=== PATIENT | male | born 1960 | race Caucasian/White ===

== ENCOUNTER 2018-02-11 18:48 | Observation (INO) | payer BC ==
[~2018-02-11] VITALS: Ht 177.8 cm; Wt 74.8 kg
[2018-02-11 22:08] LABS: BASOPHILS ABSOLUTE AUTO 0.08 K/mm3 (0.00-0.23); BASOPHILS PERCENT AUTO 1 % (0-2); EOSINOPHILS ABSOLUTE AUTO 0.09 K/mm3 (0.00-0.68); EOSINOPHILS PERCENT AUTO 1 % (0-6); Hematocrit 47.7 % (37.0-53.0); Hemoglobin 16.5 g/dL (13.5-17.5); IMMATURE GRAN ABSOLUTE AUTO 0.05 K/mm3 (0.00-0.10); IMMATURE GRAN PERCENT AUTO 0 % (0-1); LYMPHOCYTES PERCENT AUTO 10 % (21-46); MONOCYTES ABSOLUTE AUTO 1.14 K/mm3 (0.16-1.47); MONOCYTES PERCENT AUTO 8 % (4-13); Mean Corpuscular HGB 32.7 pg (26.0-34.0); Mean Corpuscular HGB Conc 34.6 g/dL (31.5-36.5); Mean Corpuscular Volume 95 fL (80-100); Mean Platelet Volume 11.2 fL (9.1-12.4); NEUTROPHILS ABSOLUTE AUTO 10.89 K/mm3 (1.96-9.15); NEUTROPHILS PERCENT AUTO 80 % (41-73); Platelet Count 251 K/mm3 (150-400); RDW Coefficient Variation 12.1 % (11.7-14.2); RDW Standard Deviation 42.2 fL (35.1-46.3); Red Blood Cell Count 5.04 M/mm3 (4.30-5.90); White Blood Cell Count 13.55 K/mm3 (4.00-11.30)
[2018-02-11 22:20] LABS: Alanine Aminotransfer (ALT/SGP 40 U/L (12-78); Albumin/Globulin Ratio 1.1 (0.8-1.8); Alk Phos 65 U/L (50-136); Anion Gap 11 mmol/L (6-16); Aspartate Aminotrans (AST/SGOT 32 U/L (12-37); Bilirubin, Total 0.5 mg/dL (0.1-1.0); Blood Urea Nitrogen 11 mg/dL (8-24); Bun/Creatinine Ratio 13.1 (12.0-20.0); CO2, Blood 26 mmol/L (21-32); Calcium, Blood 9.2 mg/dL (8.5-10.1); Chloride, Blood 103 mmol/L (98-108); Creatinine, Blood 0.84 mg/dL (0.60-1.20); Globulin, Blood 3.6 g/dL (2.2-4.0); Glomerular Filtration Rate >60 (60-); Glucose, Blood 91 mg/dL (70-99); Potassium, Blood 3.6 mmol/L (3.5-5.5); Sodium, Blood 140 mmol/L (136-145); Total Protein, Blood 7.6 g/dL (6.4-8.2)
[2018-02-12 06:42] LABS: BASOPHILS ABSOLUTE AUTO 0.03 K/mm3 (0.00-0.23); BASOPHILS PERCENT AUTO 0 % (0-2); EOSINOPHILS PERCENT AUTO 0 % (0-6); Hematocrit 43.2 % (37.0-53.0); IMMATURE GRAN ABSOLUTE AUTO 0.08 K/mm3 (0.00-0.10); IMMATURE GRAN PERCENT AUTO 0 % (0-1); LYMPHOCYTES ABSOLUTE AUTO 0.39 K/mm3 (0.84-5.20); LYMPHOCYTES PERCENT AUTO 2 % (21-46); MONOCYTES ABSOLUTE AUTO 0.87 K/mm3 (0.16-1.47); MONOCYTES PERCENT AUTO 5 % (4-13); Mean Corpuscular HGB 33.1 pg (26.0-34.0); Mean Corpuscular HGB Conc 34.7 g/dL (31.5-36.5); Mean Corpuscular Volume 95 fL (80-100); Mean Platelet Volume 10.5 fL (9.1-12.4); NEUTROPHILS ABSOLUTE AUTO 16.78 K/mm3 (1.96-9.15); NEUTROPHILS PERCENT AUTO 93 % (41-73); Platelet Count 236 K/mm3 (150-400); RDW Standard Deviation 42.1 fL (35.1-46.3); Red Blood Cell Count 4.53 M/mm3 (4.30-5.90); White Blood Cell Count 18.15 K/mm3 (4.00-11.30)
[2018-02-12] MEDS ORDERED: Percocet 5-3251 EACH PO (10:26)
== END 2018-02-12 13:28 | disposition home or self-care (01) ==
LOC: ER 18:48 → SURS 18:49
PROVIDERS: Emergency Medicine; Surgery
PROC: 0YU50JZ Supplement Right Inguinal Region with Synthetic Substitute, Open Approach (ICD-10-PCS; principal; 2018-02-12)
PROC: 0VT90ZZ Resection of Right Testis, Open Approach (ICD-10-PCS; principal; 2018-02-12)
DX: K40.31 Unilateral inguinal hernia, with obstruction, without gangrene, recurrent (principal); N43.3 Hydrocele, unspecified; F17.220 Nicotine dependence, chewing tobacco, uncomplicated
CPT/HCPCS: 36415; 80053; 85025; 93005; 93010; 96365; 96374; 96375; 96376; 99285-25; C1781; G0378; J0360; J0690; J1100; J1170; J1885; J2250; J2405; J2710; J3010; J3360; J7120

== ENCOUNTER 2019-11-11 06:06 | Day surgery (SDC) | payer BC ==
[~2019-11-11] VITALS: Ht 177.8 cm; Wt 71.3 kg
[~2019-11-11 06:06] MED LIST: Percocet 5-3251 EACH PO
--- NOTE | 2019-11-11 07:04 | NUR ---
Ambulatory in Day Surgery. Surgical site prepped with 2% Chlorhexidine cloth wipe. History, Chart, Medications and Allergies reviewed before start of procedure. Lungs clear T/O to Auscultation. Patient confirms NPO status and agrees with scheduled surgery. Pre-Op teaching done. Pt verbalizes understanding. Patient States Post-Procedure ride home has been arranged.
--- NOTE | 2019-11-11 08:04 | NUR ---
11/11/19 0804 Konstantin Rodriguez RN
--- NOTE | 2019-11-11 11:06 | NUR ---
Patient up to Ambulate independently. Gait steady. Discharge instructions reviewed with patient. Patient verbalizes understanding. Copy given to patient to take home. Dressing to procedure site clean, dry, intact with no visible drainage, swelling, erythema or bruising noted. Patient States Post-Procedure ride home has been arranged. Discharged via wheelchair to private car for ride home. ALL BELONINGS RETUNED TO PATIENT. PT STATED HE HAS SCROTAL SUPPORT AT HOME. SIGNED DISCHARGE INSTRUCTIONS.
== END 2019-11-11 22:39 | disposition home or self-care (01) ==
LOC: ORSCMMR 06:06
PROVIDERS: Surgery
PROC: 0YU64JZ Supplement Left Inguinal Region with Synthetic Substitute, Percutaneous Endoscopic Approach (ICD-10-PCS; principal; 2019-11-11 07:30)
PROC: 8E0W4CZ Robotic Assisted Procedure of Trunk Region, Percutaneous Endoscopic Approach (ICD-10-PCS; principal; 2019-11-11 07:30)
DX: K40.90 Unilateral inguinal hernia, without obstruction or gangrene, not specified as recurrent (principal)
CPT/HCPCS: 49650; S2900; A9270-GY; C1781; J0690; J1100; J1885; J2250; J2405; J2704; J3010; J7120

== ENCOUNTER 2023-11-08 04:50 | Inpatient (IN) | payer OTHER ==
[2023-11-08] VITALS (11 sets, daily range): BP systolic 121–183; BP diastolic 71–108
[~2023-11-08] VITALS: Ht 180.3 cm; Wt 72.4 kg
[2023-11-08] MEDS ORDERED: Morphine Sulfate 4 MG/1 ML Injection IV ONE (06:25)
[2023-11-08] MEDS ORDERED: Ketorolac Tromethamine 15mg Vial IV ONE (06:25)
[2023-11-08] MEDS ORDERED: Lactated Ringer's 1,000 ML IV ONE ×2 (06:25→17:32)
[2023-11-08] MEDS ORDERED: Ondansetron HCl 2 MG / ML 2ML Vial IV ONE (06:30)
[2023-11-08 06:44] LABS: BASOPHILS ABSOLUTE AUTO 0.07 K/mm3 (0.00-0.23); BASOPHILS PERCENT AUTO 1 % (0-2); EOSINOPHILS ABSOLUTE AUTO 0.02 K/mm3 (0.00-0.68); EOSINOPHILS PERCENT AUTO 0 % (0-6); Hematocrit 46.2 % (37.0-53.0); Hemoglobin 15.4 g/dL (13.5-17.5); IMMATURE GRAN ABSOLUTE AUTO 0.05 K/mm3 (0.00-0.10); IMMATURE GRAN PERCENT AUTO 1 % (0-1); LYMPHOCYTES ABSOLUTE AUTO 0.94 K/mm3 (0.84-5.20); LYMPHOCYTES PERCENT AUTO 10 % (21-46); MONOCYTES ABSOLUTE AUTO 0.96 K/mm3 (0.16-1.47); MONOCYTES PERCENT AUTO 11 % (4-13); Mean Corpuscular HGB 34.3 pg (26.0-34.0); Mean Corpuscular HGB Conc 33.3 g/dL (31.5-36.5); Mean Corpuscular Volume 103 fL (80-100); Mean Platelet Volume 9.9 fL (9.1-12.4); NEUTROPHILS ABSOLUTE AUTO 7.01 K/mm3 (1.96-9.15); NEUTROPHILS PERCENT AUTO 77 % (41-73); Platelet Count 269 K/mm3 (150-400); RDW Coefficient Variation 13.8 % (11.7-14.2); Red Blood Cell Count 4.49 M/mm3 (4.30-5.90); White Blood Cell Count 9.05 K/mm3 (4.00-11.30)
[2023-11-08 07:04] LABS: Albumin, Blood 2.8 g/dL (3.4-5.0); Albumin/Globulin Ratio 0.7 (0.8-1.8); Bilirubin, Total 0.4 mg/dL (0.1-1.0); Bun/Creatinine Ratio 5.7 (12.0-20.0); Calcium, Blood 8.6 mg/dL (8.5-10.1); Creatinine, Blood 0.71 mg/dL (0.60-1.20); Total Protein, Blood 6.8 g/dL (6.4-8.2)
[2023-11-08 07:47] LABS: Source, Urine Clean Catch
[2023-11-08 07:54] LABS: Appearance, Urine Clear (Clear); Bilirubin, Urine Neg (Neg); Blood, Urine Neg (Neg); Color, Urine Yellow (P-Yellow); Glucose Qualitative, Urine Neg (Neg); Ketones, Urine Neg (Neg); Leukocyte Esterase, Urine Neg (Neg); Nitrite, Urine Neg (Neg); Protein, Urine Neg (Neg); Urobilinogen, Urine NORM (Normal)
[2023-11-08] MEDS ORDERED: Cefepime HCl 2,000 MG in NS 100 ML IV ONE (11:55)
[2023-11-08] MEDS ORDERED: Acetaminophen 325 MG TABLET PO PRN (12:25)
[2023-11-08] MEDS ORDERED: Ondansetron HCl 2 MG / ML 2ML Vial IV PRN ×2 (12:25→17:50)
[2023-11-08] MEDS ORDERED: Piperacillin/Tazobactam Sod 3.375 GM in NS 100 ML IV SCH (13:00)
[2023-11-08] MEDS ORDERED: Lactated Ringer's 1,000 ML IV SCH ×2 (13:00→17:35)
[2023-11-08] MEDS ORDERED: COLCRYS0.6 M1 PO (13:51)
[2023-11-08] MEDS ORDERED: ALLOPURINOL100 M1 PO (13:51)
[2023-11-08] MEDS ORDERED: HydrALAZINE HCl 20 MG / ML 1ML Vial IV PRN (14:50)
[2023-11-08] MEDS ORDERED: Naloxone HCl 0.4MG / ML 1ML Vial IV PRN (15:00)
[2023-11-08] MEDS ORDERED: Morphine Sulfate 4 MG/1 ML Injection IV PRN (15:00)
--- NOTE | 2023-11-08 15:00 | NUR ---
PT ARRIVED TO UNIT FROM ED IN [facility] TRANSFERRED SELF INDEPENDENTLY TO BED FROM [facility]. IV ABX INFUSING PER ORDERS. ORIENTED TO RM/CALL LIGHT, CALL LIGHT IN REACH. PT HAS REDDENED, RAISED AREA LARGER THAN AN EGG FROM MID TO LEFT SUPRAPUBIC AREA. PT DENIES ANY NEEDS AT THIS TIME. CALL LIGHT IN REACH. SPOUSE BEDSIDE.
[2023-11-08] MEDS ORDERED: NS 500 ML IV SCH (16:00)
[2023-11-08] MEDS ORDERED: Bupivacaine 0.5% HCl 5 MG/ML 30MLVIAL ONE (17:31)
[2023-11-08] MEDS ORDERED: propofoL 20 ML IV ONE (17:34)
[2023-11-08] MEDS ORDERED: Lidocaine HCl 2% 20 ML MDV ONE (17:34)
[2023-11-08] MEDS ORDERED: FentaNYL Citrate 50 MCG/ML 2 ML Injection ONE ×2 (17:34→18:13)
[2023-11-08] MEDS ORDERED: Bupivacaine 0.5% Inj 10 ML Vial ONE (17:38)
[2023-11-08] MEDS ORDERED: Midazolam HCl 1MG / ML 2ML Vial IV ONE ×2 (17:45→17:55)
[2023-11-08] MEDS ORDERED: Lidocaine HCl 1% 5 ML SYR INJ ONE (17:45)
[2023-11-08] MEDS ORDERED: FentaNYL Citrate 50 MCG/ML 2 ML Injection IV PRN ×3 (17:45)
--- NOTE | 2023-11-08 17:49 | NUR ---
#20 PIV TO RAC-C/D/I.
--- NOTE | 2023-11-08 17:52 | NUR ---
PT TO OR
[2023-11-08] MEDS ORDERED: Midazolam HCl 1MG / ML 2ML Vial ONE (17:53)
[2023-11-08] MEDS ORDERED: Ondansetron HCl 2 MG / ML 2ML Vial ONE (18:10)
[2023-11-08] MEDS ORDERED: Dexamethasone Sod Phos 10 MG/ML 1ML VIAL ONE (18:10)
[2023-11-08] MEDS ORDERED: HYDROcodone 5-APAP 325 TAB PO PRN (18:40)
[2023-11-08] MEDS ORDERED: Lactobacil 2-S.Thermo-Bifido 1 1 Cap PO SCH (21:00)
[2023-11-09 00:02] VITALS: BP 118/77
[2023-11-09 02:10] VITALS: BP 131/89
[2023-11-09 06:21] LABS: BASOPHILS ABSOLUTE AUTO 0.02 K/mm3 (0.00-0.23); BASOPHILS PERCENT AUTO 0 % (0-2); EOSINOPHILS PERCENT AUTO 0 % (0-6); Hemoglobin 16.3 g/dL (13.5-17.5); IMMATURE GRAN ABSOLUTE AUTO 0.04 K/mm3 (0.00-0.10); IMMATURE GRAN PERCENT AUTO 0 % (0-1); LYMPHOCYTES ABSOLUTE AUTO 0.35 K/mm3 (0.84-5.20); LYMPHOCYTES PERCENT AUTO 4 % (21-46); MONOCYTES PERCENT AUTO 7 % (4-13); Mean Corpuscular HGB 34.4 pg (26.0-34.0); Mean Corpuscular Volume 101 fL (80-100); Mean Platelet Volume 10.2 fL (9.1-12.4); NEUTROPHILS ABSOLUTE AUTO 7.99 K/mm3 (1.96-9.15); NEUTROPHILS PERCENT AUTO 89 % (41-73); Platelet Count 322 K/mm3 (150-400); RDW Coefficient Variation 13.6 % (11.7-14.2); RDW Standard Deviation 50.8 fL (35.1-46.3); Red Blood Cell Count 4.74 M/mm3 (4.30-5.90)
--- NOTE | 2023-11-09 06:36 | NUR ---
SHIFT SUMMARY POD 1 I&D SUPRAPUBIC ABCESS PT ABLE TO SLEEP T/O THE NIGHT. PAIN MANAGED PER EMAR. PT TOLERATING PO INTAKE, VOIDING. PT REPORTS HAVING BM TONIGHT. PT ABLE TO AMB TO BR WITH SBA. DRESSING CHANGED DURING THE NIGHT, CURRENT DRESSING IS C/D/I. VSS, NO OTHER CONCERNS AT THIS TIME, CALL LIGHT WITHIN REACH
[2023-11-09 06:58] LABS: Magnesium, Blood 2.2 mg/dL (1.6-2.4)
[2023-11-09 07:20] LABS: Albumin, Blood 2.8 g/dL (3.4-5.0); Albumin/Globulin Ratio 0.7 (0.8-1.8); Bilirubin, Total 0.6 mg/dL (0.1-1.0); Bun/Creatinine Ratio 7.1 (12.0-20.0); Creatinine, Blood 0.85 mg/dL (0.60-1.20); Potassium, Blood 4.3 mmol/L (3.5-5.5); Total Protein, Blood 6.8 g/dL (6.4-8.2)
[2023-11-09] MEDS ORDERED: Multivitamins 1 Tab PO SCH (09:00)
[2023-11-09] MEDS ORDERED: MULVITA PO (13:17)
[2023-11-09] MEDS ORDERED: ACET325 PO (13:17)
[2023-11-09] MEDS ORDERED: VISBIOME 112.51 EACH PO (13:18)
[2023-11-09] MEDS ORDERED: LINE600 PO (13:19)
--- NOTE | 2023-11-09 13:44 | NUR ---
DISCHARGE PT AND SIG OTHER EDUCATED ON AND RECEIVED PRINTED DC INSTRUCTIONS AND VERB AN UNDERSTANDING. EXTRA DRESSINGS SENT WITH PT AND RX'S FAXED TO [facility] PER PT REQUEST. PT LEFT WITH ALL PERSONAL BELONGINGS. IV DC'D.
== END 2023-11-09 13:40 | disposition home or self-care (01) | DRG 920 ==
LOC: ER 04:50 → SURS 12:21
PROVIDERS: Emergency Medicine; Surgery; ADMIT Student in an Organized Health Care Education/Training Program
PROC: 0H97XZZ Drainage of Abdomen Skin, External Approach (ICD-10-PCS; principal; 2023-11-08 17:00)
DX: T85.79XA Infection and inflammatory reaction due to other internal prosthetic devices, implants and grafts, initial encounter (principal); L02.211 Cutaneous abscess of abdominal wall; K40.90 Unilateral inguinal hernia, without obstruction or gangrene, not specified as recurrent; Z98.890 Other specified postprocedural states; B95.61 Methicillin susceptible Staphylococcus aureus infection as the cause of diseases classified elsewhere; M10.9 Gout, unspecified; Z79.899 Other long term (current) drug therapy; N43.3 Hydrocele, unspecified; D53.9 Nutritional anemia, unspecified; Z87.891 Personal history of nicotine dependence
CPT/HCPCS: 36415; 74177; 80053; 81003; 82607; 82746; 83735; 85025; 87070; 87075; 87077; 87186; 87205; 96361; 96374-59; 96375; 99285-25; A9270; J0360; J0692; J1100; J1885; J2250; J2270; J2405; J2543; J2704; J3010; J7120; Q9967

== ENCOUNTER 2024-04-05 10:17 | Day surgery (SDC) | payer OTHER ==
[2024-04-05] VITALS (7 sets, daily range): BP systolic 140–186; BP diastolic 86–107
[~2024-04-05] VITALS: Ht 177.8 cm; Wt 71.6 kg
[~2024-04-05 10:17] MED LIST changes: +ACET325 PO; +ALLOPURINOL100 M1 PO; +COLCRYS0.6 M1 PO; +LINE600 PO; +MULVITA PO; +VISBIOME 112.51 EACH PO
[2024-04-05] MEDS ORDERED: Ampicillin Sod/Sulbactam Sod 3 GM in NS 100 ML IV SCH (10:25)
[2024-04-05] MEDS ORDERED: Lactated Ringer's 1,000 ML IV SCH (10:25)
[2024-04-05] MEDS ORDERED: propofoL 20 ML IV ONE (12:28)
[2024-04-05] MEDS ORDERED: FentaNYL Citrate 50 MCG/ML 2 ML Injection ONE (12:29)
[2024-04-05] MEDS ORDERED: Bupivacaine 0.5% HCl 5 MG/ML 30MLVIAL ONE (12:42)
[2024-04-05] MEDS ORDERED: HYDROcodone 5-APAP 325 TAB PO PRN (13:55)
--- NOTE | 2024-04-05 14:54 | NUR ---
RECEIVED REPORT FROM MARYELLEN SEWELL. PT REPORTS NO PAIN OR NAUSEA. PT EDUCATED ABOUT ELEVATED BLOOD PRESSURES AND MONITORING THEM AT HOME. PT VERBALIZES UNDERSTANDING. PT TOLERATED WATER WELL. REFUSED ANYTHING TO EAT AND PAIN MEDICATION. Discharge instructions reviewed with patient. Patient verbalizes understanding. Copy given to patient to take home. SENT PT HOME WITH EXTRA DRESSING CHANGE MATERIALS. RETURNED BELONGINGS TO PT INCLUDING CELL PHONE AND GLASSES. Discharged via wheelchair to private car for ride home WITH SPOUSE. 4X4 FLUFFS CHANGED BEFORE PT GOT DRESSED. SMALL AMOUNT OF PINK FLUIDS ON FLUDD. ABD REMAINED DRY AND INTACT. EARNEST DRAIN REMAINED IN PLACE.
== END 2024-04-05 14:57 | disposition home or self-care (01) ==
LOC: ORSCMMR 10:17 → ORD 11:45 → ORSCMMR 14:57 → ORD 15:15 → ORSCMMR 15:15
DX: L02.211 Cutaneous abscess of abdominal wall (principal); Z87.891 Personal history of nicotine dependence
CPT/HCPCS: 87070; 87075; 87205; J0295; J2704; J3010; J7120